=== PATIENT | female | born 1960 | race Caucasian/White ===

== ENCOUNTER → 2017-04-09 | Outpatient (CLI) | payer OTHER ==
[~2017-04-09] MED LIST: ASPIRIN 81MG TA81 MG PO; CELEBREX 200MG200 MG PO; FLEXERIL10 MG PO; LASIX40 MG PO; LISINOPRIL 10MG10 MG PO; LYRICA25 MG PO; METOPROLOL SUCC25 M1 PO; NEURONTIN600 MG PO; PREDNISONE50 MG PO; RELPAX40 MG PO; SKELAXIN 800MG800 MG PO; SYNTHROID 0.1M0.1 MG PO; Tramadol HCl50 MG PO; VALIUM 5MG TABLE5 MG PO; VICODIN 5/500 T1 TAB PO; VICODIN 7.5/501 EACH PO
[2017-04-09 12:58] LABS: BUN 23 mg/dL (7-18)
[2017-04-09 13:09] LABS: GFR (ESTIMATED) 58 ML/MIN (59-)
== END ==
LOC: LAB 11:08
PROVIDERS: Family Medicine
DX: I10 Essential (primary) hypertension (principal); E78.5 Hyperlipidemia, unspecified; E03.9 Hypothyroidism, unspecified